=== PATIENT | male | born 1960 | race Caucasian/White ===

== ENCOUNTER 2016-10-26 08:15 | Inpatient (IN) | payer OTHER ==
--- NOTE | ~2016-10-26 | PN ---
Unit #: [id number] #: [id number] Patient: LEONIDES VALLE [id number] [facility] [address] [place] [address] [id number] MR#: [id number] NAME: LEONIDES VALLE ROOM: P204 Age: 56 Sex: M Admission Date: 10/26/2016 : 1960 Attending Physician: Antonia Soria M.D. Admitting Physician: Antonia Soria M.D. Primary Care Physician: Generic Doctor Not In System [facility] PROGRESS NOTES DATE 10/28/2016 DISCUSSION Mr. Valle is a 56-year-old white male who was seen today and chart was reviewed and case was discussed with the staff. He has been anxious, withdrawn, depressed and rather seclusive to himself. Meanwhile, he has been cooperative with treatment recommendations and has been taking medications and tolerating them fairly well with no reported side effects. MENTAL STATUS EXAMINATION Middle-aged white male who was casually dressed with fair personal hygiene and appears to be in no acute distress or discomfort. He was awake and alert on interaction with intact orientation. His mood was anxious and depressed with congruent affect. His speech is slow and goal-directed. He denies any suicidal or homicidal ideations and also denies any auditory or visual hallucinations. His insight and judgement remains slightly impaired. TREATMENT PLAN 1. Will continue on his current medications and treatment protocol. Will monitor his response to the medications and make further adjustments as needed. 2. Will continue to follow up. Dictated by... Trever Potts/carlie TD: 10/28/2016 16:42 JOB #: [id number] Unit #: [id number] #: [id number] Patient: LEONIDES VALLE [facility] PROGRESS NOTES Page 1 of 1 X Antonia Soria MD PROGRESS NOTE
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
--- NOTE | ~2016-10-26 | PN ---
Unit #: [id number] #: [id number] Patient: LEONIDES VALLE [id number] [facility] [address] [place] [address] [id number] I MR#: [id number] NAME: LEONIDES VALLE ROOM: P204 Age: 56 Sex: M Admission Date: 10/26/2016 : 1960 Attending Physician: Antonia Soria M.D. Admitting Physician: Antonia Soria M.D. Primary Care Physician: Generic Doctor Not In System [facility] PROGRESS NOTES DATE October 27, 2016 DISCUSSION Mr. Valle is a 56-year-old white male, with mood disorder, and substance abuse, who was seen today and chart was reviewed and the case was discussed with the staff. He was seen to be anxious, withdrawn, and describes himself to be in distress and discomfort. Meanwhile, he has been cooperative with the treatment recommendations and he has been taking the medications and tolerating them fairly well with no reported side effects. MENTAL STATUS EXAMINATION Middle-aged white male, who was casually dressed with fair personal hygiene and appears to be in no acute distress or discomfort. He was awake and alert on interaction with intact orientation. His mood is anxious with a congruent affect. He denies any suicidal or homicidal ideations. His insight and judgment remain slightly impaired. TREATMENT PLAN 1. We will continue him on his current medications and treatment protocol, and will monitor his response to the medications, and make further adjustments as needed. 2. We will continue to followup. Dictated by... Trever Potts/fidelia TD: 10/28/2016 05:20 JOB #: [id number] Unit #: [id number] #: [id number] Patient: LEONIDES VALLE [facility] PROGRESS NOTES Page 1 of 1 X Antonia Soria MD PROGRESS NOTE
--- NOTE | ~2016-10-26 | CO ---
Unit #: [id number] #: [id number] Patient: LEONIDES TREVINO [id number] [place] [address] [id number] I MR#: [id number] NAME: LEONIDES TREVINO ROOM: P204 Age: 56 Sex: M Admission Date: 10/26/2016 : 1960 Attending Physician: Antonia Soria M.D. Primary Care Physician: Steve Doctor Not In System Consultation Date: 10/27/2016 CONSULTATION REPORT SUBJECTIVE Willie is a 56-year-old with history of high blood pressure. He is noncompliant with most if not all of his medications to include his blood pressure medication. Pressures since his admission have been 193/106, 156/98, 152/104. We will start Norvasc 5 mg one p.o. daily. Continue to monitor blood pressure. He knows to follow up with his PCP at discharge. He will be given a prescription for #30 of Norvasc 5 mg with one refill. Dictated by... Angella Andino P.A.-C. for Trever Armando/prashant TD: 10/29/2016 01:22 JOB #: [id number] CONSULTATION REPORT Page 1 of 1 X Angella Andino CONSULTATION REPORT
--- NOTE | ~2016-10-26 | PA ---
Unit #: [id number] #: [id number] Patient: LEONIDES VALLE [id number] [facility] [address] [place] [address] [id number] I MR#: [id number] NAME: LEONIDES VALLE ROOM: P204 Age: 56 Sex: M Admission Date: 10/26/2016 : 1960 Date of Assessment: 10/26/2016 Attending Physician: Antonia Soria M.D. Admitting Physician: Antonia Soria M.D. Primary Care Physician: Generic Doctor Not In System PSYCHIATRIC ASSESSMENT IDENTIFYING DATA Mr. Valle is a 56-year-old single white male, who is a resident of [place], [place] and is known to us from previous encounter, was self-referred to the hospital as a transfer from [facility]. CHIEF COMPLAINT "I tried to step in front of the car last night." HISTORY OF PRESENT ILLNESS Mr. Valle is a 56-year-old white male with history of alcohol dependence and mood disorder, who presented to the [facility], stating that he tried to step in front of the car last night and passed out in front of [employer] and had a blood alcohol level of 0.252, and stated that he does not remember coming to the hospital and identifies as being "a real bad alcohol." He stated that he blacked out and that he lives in [place] with his mom and that he feels like a loser and that he does not enjoy drinking, but he does not know why he cannot stop drinking and that his family supports him and stated that he is trying to drink himself to because he does not like himself. He could not find alcohol recently and started drinking rubbing alcohol 2 days ago, which placed him in the hospital and reports suicidal ideation with plan to walk out into the traffic and was seemed to be danger to self and others, and as such, recommendation for inpatient level of care was made and the patient was transferred to us. SUBSTANCE ABUSE HISTORY The patient reports alcohol dependence and reports that he has been drinking since he was 13 years old and currently has been drinking a fifth of vodka or more a day and more recently started consuming rubbing alcohol as well. PAST PSYCHIATRIC HISTORY The patient has had a history of multiple inpatient psychiatric hospitalizations at [facility] in addition to being at other facilities, and has been diagnosed and treated for mood disorder, but has been noncompliant with medications and has been decompensating. PAST MEDICAL HISTORY The patient's medical history is significant for hepatitis, hypertension, cirrhosis of the liver, history of withdrawal seizures, history of delirium tremens. Unit #: [id number] #: [id number] Patient: LEONIDES VALLE ALLERGIES No known medication allergies. PERSONAL AND SOCIAL HISTORY A 56-year-old white male, who reports that he is single, unemployed, and lives at home with his mother and has fairly decent social support system. MENTAL STATUS EXAMINATION Middle-aged white male, who was casually dressed with fair personal hygiene, appears to be in no acute distress or discomfort. He was awake and alert on interaction with intact orientation to time, place, and person. His mood was anxious and depressed with a congruent affect. His speech was slow and restricted in content. His thought processes were disorganized with some looseness of associations and suicidal ideations. His insight and judgment remain significantly impaired. DIAGNOSTIC IMPRESSION Psychiatric: Alcohol dependence, moderate, in acute withdrawals; alcohol-induced mood disorder. Medical: Hepatitis C, hypertension, history of withdrawal seizures, history of delirium tremens. Stressors: Moderate psychosocial stressors. TREATMENT PLAN 1. The patient has presented with history of mood disorder and substance abuse and has been decompensating and will need inpatient hospitalization for detoxification, safety, and stabilization. We will start him back on his home medications. We will also start him on detox protocol. 2. Supportive therapy was provided to the patient. 3. Safe, structured, and nourishing environment will be provided. ESTIMATED LENGTH OF STAY 5 to 7 days. ABILITY TO HELP SELF Limited. WILLINGNESS TO HELP SELF The patient appears to be willing to help self. STRENGTHS 1. Communicative. 2. Cooperative. PROBLEMS 1. Chronic dysphoric symptoms. 2. Chronic chemical dependency. 3. Poor social support system. DISCHARGE CRITERIA This will be contingent upon the patient's ability to show resolution of his depression and anxiety and his ability to stay safe and sober, particularly after discharge from the hospital. Dictated by... Antonia Soria M.D. Unit #: [id number] #: [id number] Patient: LEONIDES VALLE SHILA/courtneyl TD: 10/26/2016 15:35 JOB #: [id number] PSYCHIATRIC ASSESSMENT Page 1 of 1 X Antonia Soria MD PSYCHIATRIC ASSESSMENT
--- NOTE | ~2016-10-26 | PN ---
Unit #: [id number] #: [id number] Patient: LEONIDES VALLE [id number] [facility] [address] [place] [address] [id number] MR#: [id number] NAME: LEONIDES VALLE ROOM: P204 Age: 56 Sex: M Admission Date: 10/26/2016 : 1960 Attending Physician: Antonia Soria M.D. Admitting Physician: Antonia Soria M.D. Primary Care Physician: Generic Doctor Not In System [facility] PROGRESS NOTES DATE October 29, 2016 DISCUSSION Mr. Valle is a 56-year-old white male, who was seen today and chart was reviewed and the case was discussed with the staff. He has been anxious, withdrawn, and rather seclusive to himself. Meanwhile, he has been cooperative with the treatment recommendations and he has been taking the medications and tolerating them fairly well with no reported side effects. MENTAL STATUS EXAMINATION Middle-aged white male, who was casually dressed with fair personal hygiene and appears to be in no acute distress or discomfort. He was awake and alert on interaction with intact orientation. His mood is anxious with a congruent affect. He denies any suicidal or homicidal ideations. His insight and judgment remain slightly impaired. TREATMENT PLAN 1. We will continue him on his current medications and treatment protocol, and will monitor his response to the medications, and make further adjustments as needed. 2. We will continue to followup. Dictated by... Trever Potts/fidelia TD: 10/29/2016 09:44 JOB #: [id number] Unit #: [id number] #: [id number] Patient: LEONIDES VALLE [facility] PROGRESS NOTES Page 1 of 1 X Antonia Soria MD PROGRESS NOTE
== END 2016-10-30 09:51 | disposition home or self-care (01) | DRG 897 ==
LOC: P2S 08:15
PROC: HZ2ZZZZ Detoxification Services for Substance Abuse Treatment (ICD-10-PCS; principal; 2016-10-26)
DX: F10.239 Alcohol dependence with withdrawal, unspecified (principal); F10.24 Alcohol dependence with alcohol-induced mood disorder; K74.60 Unspecified cirrhosis of liver; Z56.0 Unemployment, unspecified; B19.20 Unspecified viral hepatitis C without hepatic coma; I10 Essential (primary) hypertension; E03.9 Hypothyroidism, unspecified
CPT/HCPCS: 86592